=== PATIENT | male | born 1950 | race Caucasian/White ===

== ENCOUNTER 2024-12-27 11:52 | Emergency (ER) | payer OTHER, SELFPAY ==
[2024-12-27 12:02] VITALS: BP 121/63; BMI 34.2
--- NOTE | 2024-12-27 12:50 | ED.GENMED ---
History of Present Illness
General
Chief Complaint: Abdominal Pain
Source: patient and family
Exam Limitations: none
Time Seen by Provider: 12/27/24 12:37
History of Present Illness
History of Present Illness:
74-year-old male presents with difficulty urinating onset a few days ago no bowel movement for for 5 days no history of prostate issues no history of constipation not on narcotics no fevers or chills no chest pain or shortness of breath
Past History
Past History
ED Past Medical History: Arrthythmia, HTN and NIDDM
Social History
Tobacco: Non-smoker
Alcohol: None
Drug: None
Personal:
Living: with family
Employment: Retired
Review of Systems
Review of Systems
All Other Systems: Not applicable
Constitutional: Denies fever or fatigue
EENT: Reports no symptoms
Respiratory: Reports no symptoms
Cardiac: Denies chest pain
ABD/GI: Reports abdominal pain and constipated
: Reports difficulty voiding
Musculoskeletal: Reports no symptoms
Skin: Reports no symptoms
Neurological: Reports no symptoms
Phy Exam
Physical Exam
Physical Exam:
Physical Exam
General: 74 male looks uncomfortable
Neck: No jaw
Heart: s1/s2 regular rate and rhythm, no murmur. equal radial pulses.
Lungs: no acute respiratory distress. clear bilaterally
Abdomen: Positive suprapubic tenderness
Neuro: alert and oriented. no focal neurological deficits
Skin: no rash
Psychiatric: well kept. interactive and cooperative
Extremities: no edema.
Course
Orders/Labs/Results
Orders:
Orders
12/27/24 12:36
Abdomen Xray - 1 View [CR Abdomen - 1 View] Urgent
Comment:
Reason For Exam: fos
12/27/24 12:47
Cooper Placement- Treatment ONCE
Reason for insertion: Acute Retention
12/27/24 13:02
Complete Blood Count/With Diff Urgent
Comprehensive Metabolic Panel Urgent
Urinalysis Reflex To Culture Urgent
Date Specimen was Collected: 12/27/24
Time Specimen was Collected: 13:01
Urine Microscopic Reflex Cult Urgent
12/27/24 13:49
Phosphate Enema [Fleet Phosphate Enema-Adult] 135 ml RECTAL NOW STA
12/27/24 14:02
Phosphate Enema [Fleet Phosphate Enema-Adult] 135 ml .ROUTE .STK-MED ONE
12/27/24 15:01
Magnesium Citrate [Citroma] 300 ml PO ONCE ONE
Abnormal Lab Results
12/27/24
13:02
RBC 4.68 L 10^6/uL
(4.70-6.10)
MCHC 32.8 L g/dL
(33.0-37.0)
MPV 11.3 H fL
(7.4-10.4)
Abs Immat Gran (auto) 0.1 H 10^3/uL
(0-0.05)
Absolute Neuts (auto) 6.8 H 10^3/uL
(1.4-6.5)
Immature Gran % 0.8 H %
(0-0.5)
Lymphocytes % 20.4 L %
(20.5-51.1)
BUN 24 H mg/dl
(9-20)
Glucose 167 H mg/dl
(70-99)
Total Bilirubin 1.9 H mg/dl
(0.2-1.3)
Urine Bacteria (Reflex) Few A
(Negative)
Urine Albumin (Reflex) 1+ A
(Neg - Trace)
12/27/24 13:02
12/27/24 13:02
Vital Signs
Initial and Last Documented VS:
Initial Vital Signs
Temp Pulse Resp BP Pulse Ox
97.8 F 69 14 121/63 98
12/27/24 12:02 12/27/24 12:02 12/27/24 12:02 12/27/24 12:02 12/27/24 12:02
Last Documented Vital Signs
Temp Pulse Resp BP Pulse Ox
97.8 F 70 14 121/63 97
12/27/24 12:02 12/27/24 12:30 12/27/24 12:02 12/27/24 12:02 12/27/24 12:51
MDM/Problems Addressed
Differential Diagnosis Includes:
Constipation prostatitis retention diverticulitis UTI other
MDM/Problems Addressed:
Constipation urinary retention
Chronic conditions affecting care: DM and HTN
Acute Exacerbation and/or Progression of Chronic Illness: DM and HTN
*Pulse Oximetry
SaO2: 97
Oxygen Mode of Delivery: Room air
Patient hypoxic: no
*Critical Care Note
Total Time (30-74mins, 75-104mins- exclusive of procedures): Not Applicable
Update Note
Update Note:
Patient is a urinary retention by bladder scan and history by scar and place Cooper, check KUB, labs
Update Cooper placed [id number] urine, unable to hold a enema, will place on a bowel regimen, outpatient urology
ED Attending Note
-
Portions of this chart may have been created with voice recognition software.� Occasional wrong word or��sound alike� substitutions may have occurred due to the inherent limitations of voice recognition software.
Discharge Plan
Departure
Patient Disposition: Home (Routine Discharge)
Date of Disposition: 12/27/24
Time of Disposition: 15:16
Patient with high blood pressure during this ER visit?: Yes
Condition: Good
Discharge Problem:
Acute urinary retention, Constipation
Instructions: Constipation, Adult (DC), How to Care for Your Cooper Catheter, Male, Urinary catheter placement
Prescriptions:
New
polyethylene glycol 3350 [Miralax] 17 gram/dose powder
4 g PO DAILY PRN (Reason: Constipation) Qty: 238 2RF
polyethylene glycol 3350 [Miralax] 17 gram/dose powder
4 g PO DAILY PRN (Reason: Constipation) Qty: 476 0RF
Referrals:
Ivett Ness MD [Family Provider, Internal Medicine]
Hussein Frausto MD [Active, Urology] - Tomorrow
Referral Note: Call the office today tell the staff the ER doctor spoke with Dr. Frausto he can see you tomorrow at 115
Obtain a referral from your primary care if needed
Activity Restrictions/Additional Instructions:
Call Dr. Pond urologist today he can see you tomorrow at 115
Interventions
Interventions:
*Risk Screen - Suicide Last Done: 12/27/24 12:02
*General Assessment Last Done: 12/27/24 12:02
*Neglect/Abuse Screening Last Done: 12/27/24 12:02
*ED- Fall Risk Assessment Last Done: 12/27/24 12:02
*ED COVID-19 Vaccine History Last Done: 12/27/24 12:02
*ED Influenza Vaccine History Last Done: 12/27/24 12:02
CS-Zrvlot-Kxwzmlsrym Assessment Last Done: 12/27/24 12:33
Discharge Date and Time
Print Language: ITALIAN
[2024-12-27 13:15] LABS: Hematocrit 43.6 % (39.0-52.0); Hemoglobin 14.3 g/dL (13.0-18.0); Mean Corp Hgb Conc. 32.8 g/dL (33.0-37.0); Mean Corpuscular Volume 93.2 fL (80.0-94.0); Nucleated Red Blood Cells % 0 % (-); Platelet Count 159 10^3/uL (130-400); Red Cell Dist. Width 13.8 % (11.5-14.5)
[2024-12-27 13:33] LABS: ALT (SGPT) 30 U/L (0-50); AST (SGOT) 23 U/L (17-59); Albumin 4.4 g/dl (3.5-5.0); Alkaline Phosphatase 63 U/L (38-126); Blood Urea Nitrogen 24 mg/dl (9-20); Calcium 9.3 mg/dl (8.4-10.2); Carbon Dioxide 25 mmol/L (22-30); Chloride 103 mmol/L (98-107); Estimated Creatinine Clearance 112 ml/min; Glucose 167 mg/dl (70-99); Potassium 4.7 mmol/L (3.5-5.1); Sodium 139 mmol/L (135-145); Total Protein 7.1 g/dl (6.3-8.2); eGFR > 60.00
[2024-12-27 13:49] LABS: Urine Character Clear (Clear)
[2024-12-27 14:18] LABS: Urine Red Blood Cell 0-2 /HPF (0-2); Urine White Cell 0-2 /HPF (0-5)
[2024-12-27] MEDS: FLEET PHOSPHATE ENEMA-ADULT 135 ML RECTAL (14:35)
[2024-12-27] MEDS: CITROMA 300 ML PO (15:27)
== END 2024-12-27 17:19 | disposition home or self-care (01) ==
LOC: EMR 11:52
PROVIDERS: EMERGENCY PHYSICIAN Emergency Medicine; FAMILY PHYSICIAN Internal Medicine
DX: K59.00 Constipation, unspecified (principal); R33.9 Retention of urine, unspecified; E11.9 Type 2 diabetes mellitus without complications; I10 Essential (primary) hypertension
CPT/HCPCS: 51702; 99284; 74018; 80053; 81003; 81015; 85025